=== PATIENT | female | born 1985 | race Caucasian/White ===

== ENCOUNTER 2018-03-29 14:55 | Emergency (ER) | payer BC ==
--- NOTE | 2018-03-29 15:58 | EDM.PDOC ---
ED HPI GENERAL MEDICAL PROBLEM - General Chief Complaint: Lower Extremity Injury/Pain Stated Complaint: LT LEG IS SWOLLEN Time Seen by Provider: 03/29/18 15:46 - History of Present Illness INITIAL COMMENTS - FREE TEXT/NARRATIVE: HISTORY AND PHYSICAL: History of present illness: The patient is a 32-year-old female was a history of varicose veins hypothyroidism depression and presents with complaints of pain to her left calf and her lateral leg that has been ongoing for the last 3 days. She denies any trauma to the area feels that the area is more swollen. There is no bony pain in the knee leg or ankle and has no neurosensory changes in the legs. She does not take oral control pills and has no risk factors for DVTs but is concerned about that. She says that when she points her toe she doesn't feel like she gets as much range of motion on the left she does on the right. She takes pain medications for chronic pain and as Motrin as needed and has been taking some Motrin. She has not noticed any color changes to the leg. Patient denies any chest pain shortness of breath abdominal pain or systemic complaints Review of systems: As per history of present illness and below otherwise all systems reviewed and negative. Past medical history: As per history of present illness and as reviewed below otherwise noncontributory. Surgical history: As per history of present illness and as reviewed below otherwise noncontributory. Social history: No reported history of drug or alcohol abuse. Family history: As per history of present illness and as reviewed below otherwise noncontributory. Physical exam: General: Well-developed well-nourished overweight female who is nontoxic and vital signs are reviewed by me HEENT: Atraumatic, normocephalic, negative for conjunctival pallor or scleral icterus, mucous membranes moist, throat clear, neck supple, nontender, trachea midline. Lungs: Clear to auscultation, breath sounds equal bilaterally, chest nontender. Heart: S1S2, regular rate and rhythm no overt murmurs Abdomen: Soft, nondistended, nontender. NABS Pelvis: Deferred Genitourinary: Deferred. Rectal: Deferred. Extremities: Atraumatic, range of motion of all extremities without defects deficits or bony deformities. The patient does have multiple palpable varicosities of her left lower extremity mostly on the lateral aspect of the thigh in the knee area and there is no redness or ecchymosis noted to the calf on the left. There is no gross pedal edema appreciated and all of the bones from the hip right knee tib-fib ankle and foot are all intact without deformities on the left. There is some tenderness at the lower aspect of the calf in the midline but there is no deep calf tenderness with palpation or popliteal fossa fullness or tenderness and no medial thigh tenderness. There is tenderness when I palpate the varicosities on the lateral aspect of her legs the patient can dorsi and plantar flex the feet that there is a slight decreased range of motion with plantar flexion on the left. Achilles tendon is intact to palpation and to range of motion Neurovascular unremarkable. Neuro: Awake, alert, oriented. Cranial nerves II through XII unremarkable. Cerebellum unremarkable. Motor and sensory unremarkable throughout. Exam nonfocal. Diagnostics: Venous Doppler left lower extremity Therapeutics: Impression: Left lower leg pain with history of varicosities Definitive disposition and diagnosis as appropriate pending reevaluation and review of above. lower back, Right Hip, Left Leg Pain Score (Numeric/FACES): 6 - Related Data Allergies Allergy/AdvReac Type Severity Reaction Status Date / Time morphine Allergy Hives Verified 03/29/18 15:12 bermuda grass Allergy Shortness Uncoded 03/29/18 15:12 of Breath pollen Allergy Shortness Uncoded 03/29/18 15:12 of Breath Home Meds: Home Meds ALPRAZolam [Alprazolam] 1 tab PO QID PRN 03/29/18 [History] DULoxetine [Cymbalta] 60 mg PO DAILY 03/29/18 [History] Levothyroxine [Synthroid] 50 mcg PO DAILY 03/29/18 [History] oxyCODONE HCl/Acetaminophen [Percocet 10-325 mg Tablet] 1 tab PO QID PRN [History] Past Medical History Cardiovascular History: Reports: None Gastrointestinal History: Reports: None Genitourinary History: Reports: 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: Musculoskeletal History: Reports: Back Pain, Chronic Neurological History: Reports: Migraines Endocrine/Metabolic History: Reports: Hypothyroidism Oncologic (Cancer) History: Reports: None Dermatologic History: Reports: Other (See Below) Other Dermatologic History: just completed antibiotic for cellulitis to facial piercing - Infectious Disease History Infectious Disease History: Reports: Chicken Pox - Past Surgical History Head Surgeries/Procedures: Reports: None HEENT Surgical History: Reports: Myringotomy w Tube(s) Cardiovascular Surgical History: Reports: None Respiratory Surgical History: Reports: None GI Surgical History: Reports: None Female Surgical History: Reports: Section, Tubal Ligation Neurological Surgical History: Reports: Other (See Below) Other Neurological Surgeries/Procedures: L5S1 surgery Musculoskeletal Surgical History: Reports: Arthroscopic Knee, Other (See Below) Social & Family History - Family History Family Medical History: Noncontributory - Tobacco Use Smoking Status *Q: Current Every Day Smoker Years of Tobacco use: 20 Packs/Tins Daily: 0.5 - Caffeine Use Caffeine Use: Reports: Coffee - Recreational Drug Use Recreational Drug Use: No Review of Systems - Review of Systems Review Of Systems: ROS reveals no pertinent complaints other than HPI. ED EXAM, GENERAL - Physical Exam Exam: See Below (See dictation) Course - Vital Signs Last Recorded V/S: Last Vital Signs Temp 36.8 C 03/29/18 15:09 Pulse 87 03/29/18 15:09 Resp 18 03/29/18 15:09 BP 137/89 03/29/18 15:09 Pulse Ox 96 03/29/18 15:09 Departure - Departure Time of Disposition: 16:30 Disposition: Home, Self-Care 01 Condition: Good Clinical Impression: Leg pain, left - Discharge Information Referrals: PCP,None [Primary Care Provider] - Forms: ED Department Discharge Additional Instructions: The following information is given to patients seen in the emergency department who are being discharged to home. This information is to outline your options for follow-up care. We provide all patients seen in our emergency department with a follow-up referral. The need for follow-up, as well as the timing and circumstances, are variable depending upon the specifics of your emergency department visit. If you don't have a primary care physician on staff, we will provide you with a referral. We always advise you to contact your personal physician following an emergency department visit to inform them of the circumstance of the visit and for follow-up with them and/or the need for any referrals to a consulting specialist. The emergency department will also refer you to a specialist when appropriate. This referral assures that you have the opportunity for followup care with a specialist. All of these measure are taken in an effort to provide you with optimal care, which includes your followup. Under all circumstances we always encourage you to contact your private physician who remains a resource for coordinating your care. When calling for followup care, please make the office aware that this follow-up is from your recent emergency room visit. If for any reason you are refused follow-up, please contact the [facility] emergency department at and ask to speak to the emergency department charge nurse. [facility] Primary care- Internal Medicine and Family [address] [address] [address]vate your legs and place ice to areas for symptomatic care and add an anti- inflammatory such as Aleve or Motrin for pain. Call and follow-up with your provider in the clinic or one of our clinic providers in the next few days for reevaluation and return to ER as needed and as discussed
--- NOTE | 2018-03-29 16:27 | US ---
ULTRASOUND EXAMINATION OF the left lower extremity WITH DOPPLER HISTORY: Pain FINDINGS: Examination of the left leg was performed from the groin to the calf region. All visualized segments including common femoral, proximal greater saphenous, superficial femoral, popliteal and calf veins appear patent with good compressibility and augmentation. There is no evidence of deep vein thrombos is. IMPRESSION: No evidence of a DVT.
[2018-03-29 16:52] VITALS: BP 132/79
== END 2018-03-29 16:48 | disposition home or self-care (01) ==
LOC: MW.ED 14:55
DX: M79.662 Pain in left lower leg (principal); E03.9 Hypothyroidism, unspecified; F17.210 Nicotine dependence, cigarettes, uncomplicated; Z88.5 Allergy status to narcotic agent; Z91.048 Other nonmedicinal substance allergy status; Z79.899 Other long term (current) drug therapy
CPT/HCPCS: 93971-26-LT; 93971-LT; 99283; 99283-25

== ENCOUNTER 2019-05-27 20:14 | Emergency (ER) | payer BC ==
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
[2019-05-27] MEDS ORDERED: Albuterol 0.083% 2.5 MG/3 ML Neb Soln NEB ONE (20:29)
[2019-05-27] MEDS ORDERED: Albuterol/Ipratropium 3.0-0.5 MG/3 ML Neb Soln ONE (20:31)
[2019-05-27] MEDS ORDERED: Albuterol/Ipratropium 3.0-0.5 MG/3 ML Neb Soln NEB ONE (20:33)
[2019-05-27 21:21] LABS: CHLORIDE,CL 107 mmol/L (98-107); SODIUM,NA 142 mmol/L (136-145)
--- NOTE | 2019-05-27 22:02 | CR ---
INDICATION: Chest pain. TECHNIQUE: Single portable AP view. COMPARISON: None. FINDINGS: Heart mediastinum and pulmonary vessels are within normal limits. Lungs are clear on this single view. No evidence of pneumothorax. No acute osseous abnormalities identified. IMPRESSION: Negative single-view chest. Dictated by Len Llamas MD @ May 27 2019 9:58PM Signed by Dr. Len Llamas @ May 27 2019 9:59PM
[2019-05-27 22:26] VITALS: BP 118/84
== END 2019-05-27 22:41 | disposition home or self-care (01) ==
LOC: MW.ED 20:14
DX: J40 Bronchitis, not specified as acute or chronic (principal); F41.9 Anxiety disorder, unspecified; F32.9 Major depressive disorder, single episode, unspecified; Z88.5 Allergy status to narcotic agent; Z91.09 Other allergy status, other than to drugs and biological substances; Z79.899 Other long term (current) drug therapy
CPT/HCPCS: 36415; 71045; 71045-26; 80053; 85025; 87804; 99285-25; J7620-GY

== ENCOUNTER 2019-10-15 19:20 | Emergency (ER) | payer BC ==
--- NOTE | 2019-10-15 20:21 | CR ---
INDICATION: Shortness of breath TECHNIQUE: Chest radiograph 1 view COMPARISON: 05/27/19 FINDINGS: Severe degradation of image quality noted due to body habit Mediastinum: The mediastinum is normal in appearance. The heart silhouette is normal in size and morphology. Lung: Both lungs are unremarkable in appearance. No sign of pleural effusion seen. No pneumothorax is identified. Bone and Soft tissue: Unremarkable for age. IMPRESSION: 1. No acute cardiopulmonary disease is seen. Dictated by: Carmine Huntley MD @ 10/15/2019 20:20:52 (Electronically Signed)
--- NOTE | 2019-10-15 20:33 | EDM.PDOC ---
ED HPI GENERAL MEDICAL PROBLEM - General Chief Complaint: General Stated Complaint: KIDNEY PAIN Time Seen by Provider: 10/15/19 19:44 Source of Information: Reports: Patient History Limitations: Reports: No Limitations - History of Present Illness INITIAL COMMENTS - FREE TEXT/NARRATIVE: HISTORY AND PHYSICAL: History of present illness: Patient is a 33-year-old female who presents to the ED today with concern of left-sided flank pain that has been ongoing for the past 3 months. Patient states she was seen in the clinic and did have a recent abdominal pelvic CT scan which she states she was told was normal. Patient states that she is concerned because she started having swelling of her lower extremities as well as episodes of shortness of breath over the past week along the left flank pain. She states she is concerned she could have some kidney dysfunction. Patient denies any change in her left-sided flank pain over the past couple months or since her abdominal pelvic CT scan performed recently. Patient states she's been taking Azo [id number] with some relief of her symptoms. Patient denies any health history or any other symptoms or concerns. Patient denies fever, chills, chest pain, shortness of breath, or cough. Denies headache, neck stiff ness, change in vision, syncope, or near syncope. Denies nausea, vomiting, diarrhea, constipation, or dysuria. Has not noted any blood in urine or stool. Patient has been eating and drinking appropriately. Review of systems: As per history of present illness and below otherwise all systems reviewed and negative. Past medical history: As per history of present illness and as reviewed below otherwise noncontributory. Surgical history: As per history of present illness and as reviewed below otherwise noncontributory. Social history: See social history for further information Family history: As per history of present illness and as reviewed below otherwise noncontributory. Physical exam: General: Patient is alert, oriented, and in no acute distress. Patient sitting comfortably on exam table. HEENT: Atraumatic, normocephalic, pupils equal and reactive bilaterally, negative for conjunctival pallor or scleral icterus, mucous membranes moist, TMs normal bilaterally, throat clear, neck supple, nontender, trachea midline. No drooling or trismus noted. No meningeal signs. No hot potato voice noted. Lungs: Clear to auscultation, breath sounds equal bilaterally, chest nontender. Heart: S1S2, regular rate and rhythm without overt murmur Abdomen: Soft, nondistended, nontender. Negative for masses or hepatosplenomegaly. Negative for costovertebral tenderness. Pelvis: Stable nontender. Genitourinary: Deferred. Rectal: Deferred. Skin: Intact, warm, dry. No lesions or rashes noted. Extremities: Atraumatic, negative for cords or calf pain. Neurovascular unremarkable. Neuro: Awake, alert, oriented. Cranial nerves II through XII unremarkable. Cerebellum unremarkable. Motor and sensory unremarkable throughout. Exam nonfocal. Notes: Discussed the importance for follow-up with primary care provider. Voices understanding and is agreeable to plan of care. Denies any further questions or concerns at this time. Diagnostics: CBC, CMP, UA, urine hCG, urine culture, EKG, chest x-ray, lipase, BNP (see patients abd/pelvic CT scan on 10/06/2019) Therapeutics: None Prescription: Bactrim DS Impression: Urinary tract infection Plan: 1. Take medication as prescribed. You can alternate ibuprofen and Tylenol as directed for pain and discomfort. 2. Follow-up with a primary care provider as discussed. Return to the ED as needed and as discussed. Definitive disposition and diagnosis as appropriate pending reevaluation and review of above. Left Flank Pain Score (Numeric/FACES): 7 - Related Data Allergies Allergy/AdvReac Type Severity Reaction Status Date / Time morphine Allergy Hives Verified 10/15/19 19:36 bermuda grass Allergy Shortness Uncoded 10/15/19 19:36 of Breath dust mites Allergy Other Uncoded 10/15/19 19:36 pollen Allergy Shortness Uncoded 10/15/19 19:36 of Breath Home Meds: Home Meds Levothyroxine [Synthroid] 50 mcg PO DAILY 03/29/18 [History] oxyCODONE HCl/Acetaminophen [Percocet 10-325 mg Tablet] 0.5 tab PO QID PRN 03/29 [History] Escitalopram [Lexapro] 10 mg PO DAILY 11/02/18 [History] Ondansetron [Zofran] 8 mg PO ASDIRECTED PRN 11/02/18 [History] Levothyroxine [Synthroid] 50 mcg PO ACBREAKFAST 05/27/19 [History] Pantoprazole Sodium [Protonix] 20 mg PO DAILY 05/27/19 [History] Pregabalin [Lyrica] 1 tab ASDIRECTED 05/27/19 [History] Glucosamine Sulfate 2KCl [Glucosamine] 1,000 mg PO 10/15/19 [History] Past Medical History HEENT History: Reports: Other (See Below) Other HEENT History: wears glasses Cardiovascular History: Reports: None Respiratory History: Reports: None Gastrointestinal History: Reports: None Genitourinary History: Reports: None 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: Musculoskeletal History: Reports: Back Pain, Chronic Neurological History: Reports: Migraines Psychiatric History: Reports: Anxiety, Depression, PTSD Endocrine/Metabolic History: Reports: Hypothyroidism Hematologic History: Reports: None Immunologic History: Reports: None Oncologic (Cancer) History: Reports: None Dermatologic History: Reports: Other (See Below) Other Dermatologic History: just completed antibiotic for cellulitis to facial piercing - Infectious Disease History Infectious Disease History: Reports: Chicken Pox - Past Surgical History Head Surgeries/Procedures: Reports: None HEENT Surgical History: Reports: Myringotomy w Tube(s), Oral Surgery Neurological Surgical History: Reports: Other (See Below) Social & Family History - Family History Family Medical History: Noncontributory - Tobacco Use Smoking Status *Q: Current Every Day Smoker Years of Tobacco use: 20 Packs/Tins Daily: 1 - Caffeine Use Caffeine Use: Reports: Coffee - Recreational Drug Use Recreational Drug Use: No ED ROS GENERAL - Review of Systems Review Of Systems: Comprehensive ROS is negative, except as noted in HPI. ED EXAM, GENERAL - Physical Exam Exam: See Below (see dictation) Course - Vital Signs Last Recorded V/S: Last Vital Signs Temp 97.2 F 10/15/19 19:39 Pulse 96 10/15/19 19:39 Resp 16 10/15/19 19:39 BP 143/78 H 10/15/19 19:39 Pulse Ox 100 10/15/19 19:39 - Orders/Labs/Meds Orders: Active Orders 24 hr Category Date Time Status EKG Documentation Completion [RC] STAT Care 10/15/19 19:51 Active CULTURE URINE [RM] Stat Lab 10/15/19 19:50 Received Labs: Laboratory Tests 10/15/19 10/15/19 10/15/19 Range/Units 19:50 19:50 20:18 WBC 11.03 H (4.0-11.0) K/uL RBC 4.97 (4.30-5.90) M/uL Hgb 12.5 (12.0-16.0) g/dL Hct 39.3 (36.0-46.0) % MCV 79.1 L (80.0-98.0) fL MCH 25.2 L (27.0-32.0) pg MCHC 31.8 (31.0-37.0) g/dL RDW Std Deviation 51.2 (28.0-62.0) fl RDW Coeff of Connie 18 H (11.0-15.0) % Plt Count 273 (150-400) K/uL MPV 10.30 (7.40-12.00) fL Neut % (Auto) 59.3 (48.0-80.0) % Lymph % (Auto) 29.6 (16.0-40.0) % [place] % (Auto) 6.8 (0.0-15.0) % Eos % (Auto) 3.8 (0.0-7.0) % Baso % (Auto) 0.5 (0.0-1.5) % Neut # (Auto) 6.5 H (1.4-5.7) K/uL Lymph # (Auto) 3.3 H (0.6-2.4) K/uL [place] # (Auto) 0.8 (0.0-0.8) K/uL Eos # (Auto) 0.4 (0.0-0.7) K/uL Baso # (Auto) 0.1 (0.0-0.1) K/uL Nucleated RBC % 0.0 /100WBC Nucleated RBCs # 0 K/uL Sodium (136-145) mmol/L Potassium (3.5-5.1) mmol/L Chloride (98-107) mmol/L Carbon Dioxide (21.0-32.0) mmol/L BUN (7.0-18.0) mg/dL Creatinine (0.6-1.0) mg/dL Est Cr Clr Drug Dosing mL/min Estimated GFR (MDRD) ml/min Glucose (74-106) mg/dL Calcium (8.5-10.1) mg/dL Total Bilirubin (0.2-1.0) mg/dL AST (15-37) IU/L ALT (14-63) IU/L Alkaline Phosphatase (46-116) U/L Troponin I (0.000-0.056) ng/mL B-Natriuretic Peptide (<100) PG/ML Total Protein (6.4-8.2) g/dL Albumin (3.4-5.0) g/dL Globulin (2.6-4.0) g/dL Albumin/Globulin Ratio (0.9-1.6) Lipase (73-393) U/L Urine Color ORANGE Urine Appearance CLEAR Urine pH 5.0 (5.0-8.0) Ur Specific [place] 1.025 (1.001-1.035) Urine Protein 100 H (NEGATIVE) mg/dL Urine Glucose (UA) 100 H (NEGATIVE) mg/dL Urine Ketones TRACE H (NEGATIVE) mg/dL Urine Occult Blood NEGATIVE (NEGATIVE) Urine Nitrite POSITIVE H (NEGATIVE) Urine Bilirubin NEGATIVE (NEGATIVE) Urine Urobilinogen >=8.0 H (<2.0) EU/dL Ur Leukocyte Esterase TRACE H (NEGATIVE) Urine RBC 0-1 (0-2/HPF) Urine WBC 0-1 (0-5/HPF) Ur Epithelial Cells OCCASIONAL (NONE-FEW) Urine Bacteria RARE (NEGATIVE) Urinalysis Comment Urine HCG, Qual NEGATIVE (NEGATIVE) 10/15/19 10/15/19 Range/Units 20:18 20:18 WBC (4.0-11.0) K/uL RBC (4.30-5.90) M/uL Hgb (12.0-16.0) g/dL Hct (36.0-46.0) % MCV (80.0-98.0) fL MCH (27.0-32.0) pg MCHC (31.0-37.0) g/dL RDW Std Deviation (28.0-62.0) fl RDW Coeff of Connie (11.0-15.0) % Plt Count (150-400) K/uL MPV (7.40-12.00) fL Neut % (Auto) (48.0-80.0) % Lymph % (Auto) (16.0-40.0) % [place] % (Auto) (0.0-15.0) % Eos % (Auto) (0.0-7.0) % Baso % (Auto) (0.0-1.5) % Neut # (Auto) (1.4-5.7) K/uL Lymph # (Auto) (0.6-2.4) K/uL [place] # (Auto) (0.0-0.8) K/uL Eos # (Auto) (0.0-0.7) K/uL Baso # (Auto) (0.0-0.1) K/uL Nucleated RBC % /100WBC Nucleated RBCs # K/uL Sodium 144 (136-145) mmol/L Potassium 4.4 (3.5-5.1) mmol/L Chloride 107 (98-107) mmol/L Carbon Dioxide 29.6 (21.0-32.0) mmol/L BUN 14 (7.0-18.0) mg/dL Creatinine 0.9 (0.6-1.0) mg/dL Est Cr Clr Drug Dosing 81.67 mL/min Estimated GFR (MDRD) > 60.0 ml/min Glucose 79 (74-106) mg/dL Calcium 8.3 L (8.5-10.1) mg/dL Total Bilirubin 0.2 (0.2-1.0) mg/dL AST 16 (15-37) IU/L ALT 30 (14-63) IU/L Alkaline Phosphatase 74 (46-116) U/L Troponin I < 0.050 (0.000-0.056) ng/mL B-Natriuretic Peptide 12 (<100) PG/ML Total Protein 7.2 (6.4-8.2) g/dL Albumin 3.4 (3.4-5.0) g/dL Globulin 3.8 (2.6-4.0) g/dL Albumin/Globulin Ratio 0.9 (0.9-1.6) Lipase 121 (73-393) U/L Urine Color Urine Appearance Urine pH (5.0-8.0) Ur Specific [place] (1.001-1.035) Urine Protein (NEGATIVE) mg/dL Urine Glucose (UA) (NEGATIVE) mg/dL Urine Ketones (NEGATIVE) mg/dL Urine Occult Blood (NEGATIVE) Urine Nitrite (NEGATIVE) Urine Bilirubin (NEGATIVE) Urine Urobilinogen (<2.0) EU/dL Ur Leukocyte Esterase (NEGATIVE) Urine RBC (0-2/HPF) Urine WBC (0-5/HPF) Ur Epithelial Cells (NONE-FEW) Urine Bacteria (NEGATIVE) Urinalysis Comment Urine HCG, Qual (NEGATIVE) Departure - Departure Time of Disposition: 21:04 Disposition: Home, Self-Care 01 Clinical Impression: Urinary tract infection Qualifiers: Urinary tract infection type: acute cystitis Hematuria presence: without hematuria Qualified Code(s): N30.00 - Acute cystitis without hematuria - Discharge Information Referrals: PCP,Unknown [Primary Care Provider] - Forms: ED Department Discharge Additional Instructions: The following information is given to patients seen in the emergency department who are being discharged to home. This information is to outline your options for follow-up care. We provide all patients seen in our emergency department with a follow-up referral. The need for follow-up, as well as the timing and circumstances, are variable depending upon the specifics of your emergency department visit. If you don't have a primary care physician on staff, we will provide you with a referral. We always advise you to contact your personal physician following an emergency department visit to inform them of the circumstance of the visit and for follow-up with them and/or the need for any referrals to a consulting specialist. The emergency department will also refer you to a specialist when appropriate. This referral assures that you have the opportunity for follow-up care with a specialist. All of these measure are taken in an effort to provide you with optimal care, which includes your follow-up. Under all circumstances we always encourage you to contact your private physician who remains a resource for coordinating your care. When calling for follow-up care, please make the office aware that this follow-up is from your recent emergency room visit. If for any reason you are refused follow-up, please contact the [facility] Emergency Department at and asked to speak to the emergency department charge nurse. [facility] [address] [place] [id number] [id number] 1. Take medication as prescribed. You can alternate ibuprofen and Tylenol as directed for pain and discomfort. 2. Follow-up with a primary care provider as discussed. Return to the ED as needed and as discussed. Sepsis Event Note - Evaluation Sepsis Screening Result: No Definite Risk - Focused Exam Vital Signs: Vital Signs Temp Pulse Resp BP Pulse Ox 10/15/19 19:39 97.2 F 96 16 143/78 H 100 Date Exam was Performed: 10/15/19 Time Exam was Performed: 21:03 - My Orders Last 24 Hours: My Active Orders 10/15/19 19:50 CULTURE URINE [RM] Stat 10/15/19 19:51 EKG Documentation Completion [RC] STAT - Assessment/Plan Last 24 Hours: My Active Orders 10/15/19 19:50 CULTURE URINE [RM] Stat 10/15/19 19:51 EKG Documentation Completion [RC] STAT
[2019-10-15 20:55] LABS: BLOOD UREA NITROGEN,BUN 14 mg/dL (7.0-18.0); CARBON DIOXIDE,CO2 29.6 mmol/L (21.0-32.0); CHLORIDE,CL 107 mmol/L (98-107); GLUCOSE RANDOM 79 mg/dL (74-106); LIPASE 121 U/L (73-393); POTASSIUM,K 4.4 mmol/L (3.5-5.1); SODIUM,NA 144 mmol/L (136-145)
[2019-10-15 21:19] VITALS: BP 121/77; PULSE 76
== END 2019-10-15 21:19 | disposition home or self-care (01) ==
LOC: MW.ED 19:20
DX: N30.00 Acute cystitis without hematuria (principal); F32.9 Major depressive disorder, single episode, unspecified; F41.9 Anxiety disorder, unspecified; E03.9 Hypothyroidism, unspecified; F17.210 Nicotine dependence, cigarettes, uncomplicated; Z88.5 Allergy status to narcotic agent; Z91.048 Other nonmedicinal substance allergy status; Z79.899 Other long term (current) drug therapy
CPT/HCPCS: 36415; 71045; 71045-26; 80053; 81001; 81025; 83690; 83880; 84484; 85025; 87086; 93005; 99284-25

== ENCOUNTER 2019-11-17 09:00 | Day surgery (SDC) | payer BC ==
[~2019-11-17 09:00] MED LIST: Lactated Ringers 1,000 ML IV SCH
[2019-11-17] MEDS ORDERED: Lidocaine 2% 5 ML SDV ONE (09:35)
[2019-11-17] MEDS ORDERED: Propofol 200 MG/20 ML SDV ONE ×2 (09:35→10:07)
--- NOTE | 2019-11-17 09:39 | PCM.PREANE ---
Preanesthetic Assessment - Anesthesia/Transfusion/Family Hx Anesthesia History: Prior Anesthesia Reaction (slow to wake up) Other Type of Anesthesia Reaction Comment: spent night post hysterectomy in ICU because of apnea Family History of Anesthesia Reaction: No Transfusion History: No Prior Transfusion(s) Intubation History: Unknown (pt denies ever being told she was a difficult airway) - Review of Systems General: No Symptoms Pulmonary: No Symptoms Cardiovascular: No Symptoms Gastrointestinal: Hematochezia, Other (severe acid reflux and feels like throat closes) Neurological: No Symptoms Other: Reports: None - Physical Assessment Height: 5 ft 6 in Weight: 156.489 kg ASA Class: 3 Mental Status: Alert & Oriented x3 Airway Class: Mallampati = 2 Dentition: Reports: Normal Dentition, Bridge (single flipper upper front) Thyro-Mental Finger Breadths: 3 Mouth Opening Finger Breadths: 2 (small mouth) ROM/Head Extension: Full Lungs: Clear to Auscultation, Normal Respiratory Effort Cardiovascular: Regular Rate, Regular Rhythm - Allergies Allergies/Adverse Reactions: Allergies Allergy/AdvReac Type Severity Reaction Status Date / Time morphine Allergy Hives Verified 11/13/19 13:04 bermuda grass Allergy Shortness Uncoded 11/13/19 13:04 of Breath dust mites Allergy Other Uncoded 11/13/19 13:04 pollen Allergy Shortness Uncoded 11/13/19 13:04 of Breath - Blood Blood Available: No - Anesthesia Plan Pre-Op Medication Ordered: None - Acknowledgements Anesthesia Type Planned: MAC Pt an Appropriate Candidate for the Planned Anesthesia: Yes Alternatives and Risks of Anesthesia Discussed w Pt/Guardian: Yes Pt/Guardian Understands and Agrees with Anesthesia Plan: Yes PreAnesthesia Questionnaire HEENT History: Reports: Other (See Below) Other HEENT History: wears glasses Cardiovascular History: Reports: None Respiratory History: Reports: Asthma Other Respiratory History: has an Albuterol inhaler- rarely uses it Gastrointestinal History: Reports: Chronic Diarrhea, GERD, Other (See Below) Other Gastrointestinal History: current rectal bleeding Genitourinary History: Reports: None 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: Musculoskeletal History: Reports: Arthritis, Back Pain, Chronic, Fracture, Neck Pain, Chronic, Other (See Below) (myogascial pain, neuropathic pain) Other Musculoskeletal History: frequent dislocation of both knees, hx of fx toes Neurological History: Reports: Migraines, Seizure, Other (See Below) Other Neuro History: daily [place] seizures- "zones out", very sensitive to light, hx of motion sickness and claustrophobia Psychiatric History: Reports: Anxiety, Depression, PTSD Endocrine/Metabolic History: Reports: Hypothyroidism, Obesity/BMI 30+ (BMI 55.7 , morbid obeisty), Other (See Below) Other Endocrine/Metabolic History: has a [place] adenoma Hematologic History: Reports: None Immunologic History: Reports: None Oncologic (Cancer) History: Reports: None Dermatologic History: Reports: Other (See Below) Other Dermatologic History: just completed antibiotic for cellulitis to facial piercing - Infectious Disease History Infectious Disease History: Reports: Chicken Pox - Past Surgical History Head Surgeries/Procedures: Reports: None HEENT Surgical History: Reports: Myringotomy w Tube(s) Female Surgical History: Reports: Section, Hysterectomy, Tubal Ligation Neurological Surgical History: Reports: Lumbar Spine Musculoskeletal Surgical History: Reports: Arthroscopic Knee - SUBSTANCE USE Smoking Status *Q: Current Every Day Smoker Tobacco Use Within Last Twelve Months: Cigarettes Recreational Drug Use History: No - HOME MEDS Home Medications: Home Meds oxyCODONE HCl/Acetaminophen [Percocet 10-325 mg Tablet] 1 tab PO TID 03/29/18 [ History] Glucosamine Sulfate 2KCl [Glucosamine] 1,000 mg PO DAILY 10/15/19 [History] Cholecalciferol (Vitamin D3) [Vitamin D3] 1 cap PO DAILY 11/13/19 [History] Citalopram Hydrobromide [Celexa] 40 mg PO DAILY 11/13/19 [History] Fluticasone Propionate [Flonase Allergy Relief] 1 spray NASBOTH DAILY PRN [History] Levothyroxine Sodium 88 mcg PO QAM 11/13/19 [History] Mirtazapine 15 mg PO BEDTIME 11/13/19 [History] Ondansetron [Zofran] 8 mg PO DAILY PRN 11/13/19 [History] Pantoprazole Sodium 40 mg PO DAILY 11/13/19 [History] Prazosin [Minpress] 1 mg PO BEDTIME 11/13/19 [History] Pregabalin 75 mg PO BID 11/13/19 [History] oxyCODONE HCl/Acetaminophen [Endocet 10-325 mg Tablet] 1 tab PO TID 11/13/19 [ History] - CURRENT (IN HOUSE) MEDS Current Meds: Current Medications Lactated Ringer's (Ringers, Lactated) 1,000 mls @ 125 mls/hr IV ASDIRECTED FRANNIE
[2019-11-17] MEDS ORDERED: fentaNYL 100 MCG/2 ML SDV ONE (10:00)
--- NOTE | 2019-11-17 10:41 | PCM.OPNOTE ---
- General Post-Op/Procedure Note Date of Surgery/Procedure: 11/17/19 Operative Procedure(s): egd w bx. colonoscopy Findings: see [id number] Pre Op Diagnosis: dysphagia and abd pain Post-Op Diagnosis: Same Anesthesia Technique: Moderate Sedation Primary Surgeon: Garcia Mantilla Pathology: egd bx Complications: None Condition: Good
[2019-11-17 10:59] VITALS: BP 132/87; PULSE 68
--- NOTE | 2019-11-17 11:28 | PCM.POSTAN ---
POST ANESTHESIA ASSESSMENT - MENTAL STATUS Mental Status: Alert, Oriented - VITAL SIGNS Vital Signs: Last Vital Signs Temp 36.5 C 11/17/19 10:45 Pulse 68 11/17/19 10:45 Resp 15 11/17/19 10:45 BP 132/87 11/17/19 10:45 Pulse Ox 96 11/17/19 10:45 - RESPIRATORY Respiratory Status: Respiratory Rate WNL, Airway Patent, O2 Saturation Stable - CARDIOVASCULAR CV Status: Pulse Rate WNL, Blood Pressure Stable - GASTROINTESTINAL GI Status: No Symptoms - PAIN Pain Score: 0 - POST OP HYDRATION Hydration Status: Adequate & Stable - OBSERVATIONS Free Text/Narrative:: No anesthesia problems
--- NOTE | 2019-11-17 11:30 | PCM48HPAN ---
Post Anesthesia Note - EVALUATION WITHIN 48HRS OF ANESTHETIC Vital Signs in Normal Range: Yes Patient Participated in Evaluation: Yes Respiratory Function Stable: Yes Airway Patent: Yes Cardiovascular Function Stable: Yes Hydration Status Stable: Yes Pain Control Satisfactory: Yes Nausea and Vomiting Control Satisfactory: Yes Mental Status Recovered: Yes Vital Signs: Last Vital Signs Temp 36.5 C 11/17/19 10:45 Pulse 68 11/17/19 10:45 Resp 15 11/17/19 10:45 BP 132/87 11/17/19 10:45 Pulse Ox 96 11/17/19 10:45 - COMMENTS/OBSERVATIONS Free Text/Narrative:: No anesthesia problems
--- NOTE | 2019-11-17 12:30 | OR ---
SURGEON: Garcia Mantilla MD DATE OF PROCEDURE: 11/17/2019 PREOPERATIVE DIAGNOSES: Dysphagia and abdominal pain. POSTOPERATIVE DIAGNOSES: Esophagogastroduodenoscopy is hiatal hernia and gastroesophageal reflux disease. Colonoscopy diagnosis is hemorrhoid. PROCEDURES PERFORMED: Esophagogastroduodenoscopy with biopsy and colonoscopy. DESCRIPTION OF PROCEDURE: EGD: The patient was taken to the endoscopy room, and with the TEASEL GIG OPERATOR, Diprivan was administered. A well-lubricated EGD scope was gently inserted through the oropharynx, down the esophagus, passing through the gastroesophageal junction, into the stomach. The mucosa was examined upon the passage. Any etiology will be noted. Once in the stomach, we continued to advance to the distal antrum, passed through the pylorus into the second portion of the duodenum. Again, the mucosa was examined for any abnormality and etiology. The scope was then retrieved back to the stomach and then retroflexed to look at the fundus of the stomach. If a biopsy was indicated, we will biopsy the antrum, body, and gastroesophageal junction. The air will be sucked out while the scope is retrieved to reduce the patient's discomfort. The patient tolerated the procedure well. There were no intraoperative complications. Dr. Mantilla was present through the whole procedure. Prior to surgery, a time-out had been called, the patient identified, procedure identified and antibiotic administered. The patient was taken to the endoscopy room. A time out was called, patient identified, and procedure identified. Diprivan was then administrated. Patient went from awake to sleep, hearing doctor talking or door closing is normal. Perineum inspection and digital examination were then performed. A well- lubricated colonoscope was gently inserted through the rectum, advanced past the rectosigmoid junction, the descending colon, splenic flexure, transverse colon, hepatic flexure, ascending colon, arrived to the cecum. Cecum was identified as dictated in the finding. Then the scope was carefully withdrawn while attention was paid to the mucosal surface for any abnormality. Air will be sucked out during the scope withdrawal. At the rectum, retroflexed to examine any rectal diseases, fistula or hemorrhoids. Patient tolerated procedure well. There were no intraoperative complications, and Dr. Mantilla was present throughout the whole procedure. FINDINGS: EGD findings: 1. The patient is easily sedated with TEASEL GIG OPERATOR and Diprivan, the patient is soundly snoring. 2. Oropharynx and proximal esophagus are free of disease, stricture, or inflammation. Distal esophagus at distance of 35 shows a flame-like salmon- colored change, suggests moderate GERD and concern for Martins's too. There are several skip lesions. Stomach rugae are normal in appearance. Antrum is mildly inflamed. Duodenum is grossly normal. Retroflexed look at the fundus of stomach, the patient has a small hiatal hernia. Biopsy done at antrum and body and GE junction at 35 and sucked out the gas while scope pulling out. During the whole study, there is no blood, fluid, or bile observed. Colonoscopy findings: 1. The patient is easily sedated with TEASEL GIG OPERATOR and Diprivan, the patient is soundly snoring. 2. Bowel prep is marginally acceptable to unacceptable. Large amount of semi- formed liquid stool, opaque, and compromised the study. Although we can reach cecum, but the study is very very compromised. Colon is rather redundant and cecum is indicated by ileocecal fold, one-to-one indentation, and appendiceal orifice. ScopeGuide is pointing south. Light emittance is not observed. Mucosa examined upon scope pulling out. The patient has a large amount of semi-formed stool coating the mucosa requiring almost constant irrigation, but still, I mean after I irrigated, the stool covered the mucosa right away, so the study is quite compromised. From this study, there is no diverticulosis, polyp, mass, growth, inflammation, stricture, ulceration, AV malformation, none of those. The patient has mild internal hemorrhoids, mild external hemorrhoids. The patient would benefit from repeat colonoscopy in 18 months because of the marginally acceptable bowel prep and probably the patient will need to repeat the EGD at that time too because of skip lesion, concern for Martins esophagitis. We will also put the patient on PPI, omeprazole 20 mg p.o. daily for 6 months with one refill. HALLIE / TR /[id number]
== END 2019-11-17 11:15 | disposition home or self-care (01) ==
LOC: MW.SDS 09:00
PROVIDERS: ATTEND Surgery
DX: K44.9 Diaphragmatic hernia without obstruction or gangrene (principal); K21.0 Gastro-esophageal reflux disease with esophagitis; K29.50 Unspecified chronic gastritis without bleeding; K64.8 Other hemorrhoids; K64.4 Residual hemorrhoidal skin tags; F41.9 Anxiety disorder, unspecified; F32.1 Major depressive disorder, single episode, moderate; G43.109 Migraine with aura, not intractable, without status migrainosus; M47.818 Spondylosis without myelopathy or radiculopathy, sacral and sacrococcygeal region; M47.22 Other spondylosis with radiculopathy, cervical region; E03.8 Other specified hypothyroidism; J45.909 Unspecified asthma, uncomplicated; E66.01 Morbid (severe) obesity due to excess calories; Z68.43 Body mass index [BMI] 50.0-59.9, adult; Z87.891 Personal history of nicotine dependence; Z88.5 Allergy status to narcotic agent; Z91.09 Other allergy status, other than to drugs and biological substances; Z79.899 Other long term (current) drug therapy
CPT/HCPCS: 43239; 45378; J2001; J2704; J3010; J7120

== ENCOUNTER 2020-11-15 17:12 | Emergency (ER) | payer BC ==
--- NOTE | 2020-11-15 17:25 | EDM.PDOC ---
ED HPI GENERAL MEDICAL PROBLEM - General Chief Complaint: Respiratory Problem Stated Complaint: UNCONTROLLABLE ASTHMA Time Seen by Provider: 11/15/20 17:15 Source of Information: Reports: Patient History Limitations: Reports: No Limitations - History of Present Illness INITIAL COMMENTS - FREE TEXT/NARRATIVE: HISTORY AND PHYSICAL: History of present illness: Patient is a 35-year-old female who presents to the emergency room with complaints of right posterior chest wall pain when she coughs and has shortness of breath x 4-5 days. Patient does have a history of asthma and states typically she does not have to use her albuterol inhaler but has been having to use this over the past several days more frequently. Patient denies any fever, chills, headache, change in vision, syncope or near syncope. Denies any chest pain or hemoptysis. Denies any abdominal pain, nausea, vomiting, diarrhea, constipation or dysuria. Has not noted any blood in urine or stool. She has had a hysterectomy, no concern for . Patient has been eating and drinking appropriately. Review of systems: As per history of present illness and below otherwise all systems reviewed and negative. Past medical history: As per history of present illness and as reviewed below otherwise noncontributory. Surgical history: As per history of present illness and as reviewed below otherwise non contributory. Social history: See social history for further information Family history: As per history of present illness and as reviewed below otherwise noncontributory. Physical exam: General: Well developed and well nourished 35-year-old female. Alert and orientated x 3. Nontoxic in appearance and in no acute distress. Vital signs are stable and have been reviewed by me. Nursing notes were reviewed. HEENT: Atraumatic, normocephalic, pupils equal and reactive bilaterally, negative for conjunctival pallor or scleral icterus, mucous membranes moist, TMs normal bilaterally, throat clear, neck supple, nontender, trachea midline. No drooling or trismus noted. No meningeal signs. No hot potato voice noted. Lungs: Clear to auscultation with fine expiratory wheezing to bases bilaterally. No rales, or rhonchi. Dry nonproductive cough noted. Chest nontender. Normal work of breathing, no accessory muscles used. Heart: S1S2, regular rate and rhythm without overt murmur, gallops, or rubs. No JVD. No peripheral edema Abdomen: Soft, nondistended, nontender. Normoactive bowel sounds. Negative for masses or costovertebral tenderness. Pelvis: Stable nontender. Genitourinary/Rectal: Deferred. Skin: Intact, warm, dry. No lesions or rashes noted. Hematologic: No petechiae or purpra. Mucosa appropriate color and normal nail bed color and refill. Extremities: Atraumatic, moves all extremities per self without difficulty or deficits, negative for cords or calf pain. Neurovascular unremarkable. Neuro: Awake, alert, oriented. Cranial nerves II through XII unremarkable. Cerebellum unremarkable. Motor and sensory unremarkable throughout. Exam nonfocal. Psychiatric: Mood and affect are appropriate. Normal thought process. Answering questions appropriately. Notes: *This patient was seen and evaluated during the 2019 SARS-CoV-2 novel coronavirus pandemic period. Community viral transmission is ongoing at time of this encounter and the emergency department is operating under pandemic response procedures. Patient states that the right lower posterior lung base is where it hurts when she is coughing. When she is coughing frequently she becomes short of breath. When at rest she does not have any shortness of breath, chest pain or back pain. She has no urinary symptoms although I will get a UA and chest x-ray and swab her for COVID. Patient is negative for COVID-19 and influenza. Her chest x-ray shows acute findings. Due to her history of asthma and length of symptoms I will treat her with a Z-Isael. I have talked with the patient about today's findings, in addition to providing specific details for plan of care. Reassessment at the time of disposition demonstrates that the patient is in no acute distress. The patient is stable for discharge, counseling was provided and we discussed in great detail signs and symptoms that would prompt them to return to the Emergency Department. Medication, follow up and supportive care measures were reviewed and discussed. Voices understanding and is agreeable to plan of care. Denies any further questions or concerns at this time. Diagnostics: Influenza/COVID, CXR, UA Therapeutics: Duo Neb Prescription: Z-Isael, prednisone, DuoNeb [facility] prescription for nebulizer machine Impression: Asthma exacerbation Bronchitis Plan: 1. Your negative for COVID-19 and influenza. Your chest x-ray shows no evidence of and acute pneumonia. I am going to treat you with azithromycin for an atypical pneumonia due to your history of asthma and frequent coughing. 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 2. You can alternate Tylenol and ibuprofen as needed for pain and fever management. 3. We encourage you to follow up with your primary care provider and/or recommended specialist in the next few days for re-evaluation and further care/management. 4. If your symptoms should worsen, new symptoms develop or any of the signs and symptoms we discussed should arise please return to the emergency room or call 911 (if needed). Definitive disposition and diagnosis as appropriate pending reevaluation and rev iew of above. rib Pain Score (Numeric/FACES): 7 - Related Data Allergies Allergy/AdvReac Type Severity Reaction Status Date / Time morphine Allergy Hives Verified 11/15/20 17:26 bermuda grass Allergy Shortness Uncoded 11/15/20 17:26 of Breath dust mites Allergy Other Uncoded 11/15/20 17:26 pollen Allergy Shortness Uncoded 11/15/20 17:26 of Breath Home Meds: Home Meds oxyCODONE HCl/Acetaminophen [Percocet 10-325 mg Tablet] 1 tab PO TID 03/29/18 [History] Glucosamine Sulfate Dipot Chlr [Glucosamine] 1,000 mg PO DAILY 10/15/19 [History] Cholecalciferol (Vitamin D3) [Vitamin D3] 1 cap PO DAILY 11/13/19 [History] Citalopram Hydrobromide [Celexa] 40 mg PO DAILY 11/13/19 [History] Fluticasone Propionate [Flonase Allergy Relief] 1 spray NASBOTH DAILY PRN 11/13/19 [History] Levothyroxine Sodium 88 mcg PO QAM 11/13/19 [History] Mirtazapine 15 mg PO BEDTIME 11/13/19 [History] Ondansetron [Zofran] 8 mg PO DAILY PRN 11/13/19 [History] Pantoprazole Sodium 40 mg PO DAILY 11/13/19 [History] Prazosin [Minpress] 1 mg PO BEDTIME 11/13/19 [History] Pregabalin 75 mg PO BID 11/13/19 [History] oxyCODONE HCl/Acetaminophen [Endocet 10-325 mg Tablet] 1 tab PO TID 11/13/19 [History] Albuterol/Ipratropium [DuoNeb 3.0-0.5 MG/3 ML] 1 ampule INH Q4HR PRN #1 box 11/15/20 [Rx] Azithromycin [Zithromax] 1 dose PO DAILY 5 Days #6 tab 11/15/20 [Rx] predniSONE [Prednisone] 40 mg PO DAILY 4 Days #8 tablet 11/15/20 [Rx] Past Medical History HEENT History: Reports: Other (See Below) Other HEENT History: wears glasses Cardiovascular History: Reports: None Respiratory History: Reports: Asthma Other Respiratory History: has an Albuterol inhaler- rarely uses it Gastrointestinal History: Reports: Chronic Diarrhea, GERD, Other (See Below) Other Gastrointestinal History: current rectal bleeding Genitourinary History: Reports: None 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: Musculoskeletal History: Reports: Arthritis, Back Pain, Chronic, Fracture, Neck Pain, Chronic, Other (See Below) Other Musculoskeletal History: frequent dislocation of both knees, hx of fx toes Neurological History: Reports: Migraines, Seizure, Other (See Below) Other Neuro History: daily [place] seizures- "zones out", very sensitive to light, hx of motion sickness and claustrophobia Psychiatric History: Reports: Anxiety, Depression, PTSD Endocrine/Metabolic History: Reports: Hypothyroidism, Obesity/BMI 30+, Other (See Below) Other Endocrine/Metabolic History: has a [place] adenoma Hematologic History: Reports: None Immunologic History: Reports: None Oncologic (Cancer) History: Reports: None Dermatologic History: Reports: Other (See Below) Other Dermatologic History: just completed antibiotic for cellulitis to facial piercing - Infectious Disease History Infectious Disease History: Reports: Chicken Pox - Past Surgical History Head Surgeries/Procedures: Reports: None HEENT Surgical History: Reports: Myringotomy w Tube(s) Cardiovascular Surgical History: Reports: None Respiratory Surgical History: Reports: None GI Surgical History: Reports: None Female Surgical History: Reports: Section, Hysterectomy, Tubal Ligation Neurological Surgical History: Reports: Lumbar Spine Other Neurological Surgeries/Procedures: L5S1 surgery Musculoskeletal Surgical History: Reports: Arthroscopic Knee Other Musculoskeletal Surgeries/Procedures:: right knee Social & Family History - Family History Family Medical History: No Pertinent Family History - Caffeine Use Caffeine Use: Reports: Coffee ED ROS GENERAL - Review of Systems Review Of Systems: Comprehensive ROS is negative, except as noted in HPI. ED EXAM, GENERAL - Physical Exam Exam: See Below (See dictation) Course - Vital Signs Last Recorded V/S: Last Vital Signs Temp 96.6 F L 11/15/20 17:23 Pulse 86 11/15/20 19:00 Resp 17 11/15/20 19:00 BP 138/79 11/15/20 19:00 Pulse Ox 98 11/15/20 19:00 - Orders/Labs/Meds Labs: Laboratory Tests 11/15/20 11/15/20 Range/Units 17:35 19:00 Urine Color YELLOW Urine Appearance CLEAR Urine pH 6.0 (5.0-8.0) Ur Specific [place] >= 1.030 (1.001-1.035) Urine Protein NEGATIVE (NEGATIVE) mg/dL Urine Glucose (UA) NEGATIVE (NEGATIVE) mg/dL Urine Ketones NEGATIVE (NEGATIVE) mg/dL Urine Occult Blood NEGATIVE (NEGATIVE) Urine Nitrite NEGATIVE (NEGATIVE) Urine Bilirubin SMALL H (NEGATIVE) Urine Ictotest NEGATIVE Urine Urobilinogen 0.2 (<2.0) EU/dL Ur Leukocyte Esterase NEGATIVE (NEGATIVE) Influenza Type A RNA NEGATIVE (NEGATIVE) Influenza Type B RNA NEGATIVE (NEGATIVE) SARS-CoV-2 RNA (ADONAY) NEGATIVE (NEGATIVE) Meds: Medications Discontinued Medications Generic Name Dose Route Start Last Admin Trade Name Freq PRN Reason Stop Dose Admin Albuterol/Ipratropium 3 ml 11/15/20 18:28 11/15/20 18:37 Duoneb 3.0-0.5 Mg/3 Ml NEB 11/15/20 18:29 3 ml ONETIME ONE Administration Departure - Departure Time of Disposition: 18:53 Disposition: Home, Self-Care 01 Clinical Impression: Bronchitis Exacerbation of asthma Qualifiers: Asthma severity: mild Asthma persistence: persistent Qualified Code(s): J45.31 - Mild persistent asthma with (acute) exacerbation - Discharge Information Prescriptions: Albuterol/Ipratropium [DuoNeb 3.0-0.5 MG/3 ML] 1 ampule INH Q4HR PRN #1 box PRN Reason: Dyspnea predniSONE [Prednisone] 40 mg PO DAILY 4 Days #8 tablet Azithromycin [Zithromax] 1 dose PO DAILY 5 Days #6 tab Instructions: Asthma Attack Prevention, Adult Referrals: PCP,Not In Area [Primary Care Provider] - Forms: ED Department Discharge Additional Instructions: The following information is given to patients seen in the emergency department who are being discharged to home. This information is to outline your options for follow-up care. We provide all patients seen in our emergency department with a follow-up referral. The need for follow-up, as well as the timing and circumstances, are variable depending upon the specifics of your emergency department visit. If you don't have a primary care physician on staff, we will provide you with a referral. We always advise you to contact your personal physician following an emergency department visit to inform them of the circumstance of the visit and for follow-up with them and/or the need for any referrals to a consulting specialist. The emergency department will also refer you to a specialist when appropriate. This referral assures that you have the opportunity for follow-up care with a specialist. All of these measure are taken in an effort to provide you with optimal care, which includes your follow-up. Under all circumstances we always encourage you to contact your private physician who remains a resource for coordinating your care. When calling for follow-up care, please make the office aware that this follow-up is from your recent emergency room visit. If for any reason you are refused follow-up, please contact the [facility] Department at and asked to speak to the emergency department charge nurse. [facility] [address] [place], [place] [id number] [place] [address] Thank you for choosing the [facility] emergency department in [place] for your medical needs today. It was a pleasure caring for you. Today you were seen in the emergency department for cough and shortness of breath. 1. Your negative for COVID-19 and influenza. Your chest x-ray shows no evidence of and acute pneumonia. I am going to treat you with azithromycin for an atypical pneumonia due to your history of asthma and frequent coughing. 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 2. You can alternate Tylenol and ibuprofen as needed for pain and fever management. 3. We encourage you to follow up with your primary care provider and/or recommended specialist in the next few days for re-evaluation and further care/management. 4. If your symptoms should worsen, new symptoms develop or any of the signs and symptoms we discussed should arise please return to the emergency room or call 911 (if needed). Sepsis Event Note (ED) - Focused Exam Vital Signs: Vital Signs Temp Pulse Resp BP Pulse Ox 11/15/20 19:00 86 17 138/79 98 11/15/20 17:23 96.6 F L 83 16 148/90 H 100
[2020-11-15 18:22] LABS: CORONAVIRUS COVID-19 NAA NEGATIVE (NEGATIVE); INFLUENZA A NAA NEGATIVE (NEGATIVE); INFLUENZA B NAA NEGATIVE (NEGATIVE)
[2020-11-15] MEDS ORDERED: Albuterol/Ipratropium 3.0-0.5 MG/3 ML Neb Soln NEB ONE (18:28)
--- NOTE | 2020-11-15 18:54 | CR ---
Indication: Chest pain, shortness of breath Technique: Chest 1 view Comparison: October 15, 2019 Findings/Impression: Cardiovascular and mediastinum: Heart size and vasculature are normal in caliber and appearance. Mediastinum is within normal limits. Lungs and pleural space: Lungs are clear. No sign of infiltrate or mass. No sign of pleural effusion. No pneumothorax. Bones and soft tissues: No significant findings. Dictated by Elva Hairston MD @ Nov 15 2020 6:52PM Signed by Dr. Elva Hairston @ Nov 15 2020 6:53PM
[2020-11-15 19:51] VITALS: BP 138/79; PULSE 86
== END 2020-11-15 19:12 | disposition home or self-care (01) ==
LOC: MW.ED 17:12
DX: J45.31 Mild persistent asthma with (acute) exacerbation (principal); Z20.822 Contact with and (suspected) exposure to COVID-19; K21.9 Gastro-esophageal reflux disease without esophagitis; E66.9 Obesity, unspecified; E03.9 Hypothyroidism, unspecified; Z68.42 Body mass index [BMI] 45.0-49.9, adult; Z88.5 Allergy status to narcotic agent; Z88.8 Allergy status to other drugs, medicaments and biological substances; Z79.899 Other long term (current) drug therapy
CPT/HCPCS: 0240U; 71045; 81003; 94640; 99285; 99282; J7620-GY

== ENCOUNTER 2024-11-04 22:00 | Emergency (ER) | payer OTHER ==
[2024-11-04] MEDS ORDERED: Sodium Chloride 0.9% 10 ML Syringe FLUSH PRN (22:34)
[2024-11-04 22:59] LABS: BASOPHILS ABSOLUTE AUTO 0.03 K/uL (0.00-0.20); BASOPHILS PERCENT AUTO 0.3 % (0.0-1.0); EOSINOPHILS ABSOLUTE AUTO 0.16 K/uL (0.00-0.45); EOSINOPHILS PERCENT AUTO 1.6 % (0.0-6.0); HEMATOCRIT 42.6 % (37.0-47.0); HEMOGLOBIN 14.7 g/dL (12.0-16.0); IMMATURE GRAN ABSOLUTE AUTO 0.02 K/uL (0.00-0.05); IMMATURE GRAN PERCENT AUTO 0.2 % (0.0-0.4); LYMPHOCYTES ABSOLUTE AUTO 2.95 K/uL (1.00-4.80); LYMPHOCYTES PERCENT AUTO 29.9 % (24.0-44.0); MEAN CORPUSCULAR HEMOGLOBIN 30.8 pg (28.0-32.0); MEAN CORPUSCULAR HGB CONC 34.5 g/dL (32.0-36.0); MEAN CORPUSCULAR VOLUME 89.3 fL (83.0-99.0); MEAN PLATELET VOLUME 10.2 fL (9.4-12.3); MONOCYTES ABSOLUTE AUTO 0.49 K/uL (0.00-0.80); NEUTROPHILS ABSOLUTE AUTO 6.23 K/uL (1.80-7.70); PLATELET COUNT,PLT 255 K/uL (150-400); RED BLOOD CELL COUNT 4.77 M/uL (4.10-5.30); WHITE BLOOD CELL COUNT,WBC 9.88 K/uL (3.9-11.3)
[2024-11-04 23:10] LABS: INR 0.94 (0.86-1.11)
[2024-11-04 23:27] LABS: ALANINE AMINOTRANSFERASE,ALT 21 IU/L (14-63); ALBUMIN 3.7 g/dL (3.4-5.0); ALKALINE PHOSPHATASE 62 U/L (46-116); ASPARTATE AMNIOTRANSFERASE,AST 16 IU/L (15-37); BILIRUBIN TOTAL 0.3 mg/dL (0.2-1.0); BLOOD UREA NITROGEN,BUN 8 mg/dL (7.0-18.0); CALCIUM 9.1 mg/dL (8.5-10.1); CARBON DIOXIDE,CO2 30.6 mmol/L (21.0-32.0); CHLORIDE,CL 105 mmol/L (98-107); EST CRCL DRUG DOSING (CG) 69.31 mL/min; ESTIMATED GFR 73 mL/min (>60); GLUCOSE RANDOM 77 mg/dL (74-106); LIPASE 54 U/L (16-77); POTASSIUM,K 3.4 mmol/L (3.5-5.1); PRO B-TYPE NATRIUR PEPT,BNPPRO 87 pg/mL (0-125); PROTEIN TOTAL,TP 7.4 g/dL (6.4-8.2); SODIUM,NA 141 mmol/L (136-145)
[2024-11-04 23:30] LABS: BILIRUBIN,URINE NEGATIVE (NEGATIVE); COLOR,URINE YELLOW; GLUCOSE,URINE NEGATIVE (NEGATIVE); KETONES,URINE NEGATIVE (NEGATIVE); LEUKOCYTE ESTERASE,URINE NEGATIVE (NEGATIVE); NITRITE,URINE NEGATIVE (NEGATIVE); OCCULT BLOOD,URINE NEGATIVE (NEGATIVE); PROTEIN,URINE NEGATIVE (NEGATIVE); UROBILINOGEN,URINE 0.2 EU/dL (<2.0)
[2024-11-04 23:34] LABS: APPEARANCE,URINE HAZY
[2024-11-04 23:42] LABS: AMPHETAMINES SCREEN, URINE PRESUMPTIVE POSITIVE (CUTOFF=500); BARBITURATE SCREEN,URINE NEGATIVE (CUTOFF=200); BENZODIAZEPINES SCREEN,URINE NEGATIVE (CUTOFF=150); BUPRENORPHINE SCREEN,URINE NEGATIVE (CUTOFF=10); METHADONE SCREEN, URINE NEGATIVE (CUTOFF=200); METHAMPHETAMINES SCREEN, URINE NEGATIVE (CUTOFF=500); OXYCODONE SCREEN,URINE NEGATIVE (CUT0FF=100); PCP SCREEN,URINE NEGATIVE (CUTOFF=25); THC SCREEN,URINE 20 NG/ML PRESUMPTIVE POSITIVE (CUTOFF=50)
[2024-11-04] MEDS: Dexamethasone 4 MG/ML SDV IVPUSH ONE (23:44)
[2024-11-04] MEDS: Sodium Chloride 0.9% 1,000 ML IV ONE (23:44)
[2024-11-04 23:51] VITALS: BP 129/97; PULSE 69
== END 2024-11-05 00:46 | disposition home or self-care (01) ==
LOC: MW.ED 22:00
DX: K59.09 Other constipation (principal); J02.9 Acute pharyngitis, unspecified; R06.02 Shortness of breath; R30.0 Dysuria; F15.90 Other stimulant use, unspecified, uncomplicated; F12.90 Cannabis use, unspecified, uncomplicated; J45.909 Unspecified asthma, uncomplicated; E03.9 Hypothyroidism, unspecified; E66.9 Obesity, unspecified; Z79.899 Other long term (current) drug therapy; Z90.710 Acquired absence of both cervix and uterus; Z88.5 Allergy status to narcotic agent; Z91.048 Other nonmedicinal substance allergy status; Z68.41 Body mass index [BMI] 40.0-44.9, adult
CPT/HCPCS: 36415; 71045; 80053; 80305; 81003; 83605; 83690; 83735; 83880; 84484; 85025; 85610; 87428; 96361; 96374; 99285; J1100; J7030

== ENCOUNTER 2025-02-11 23:58 | Emergency (ER) | payer OTHER ==
[2025-02-12 00:06] VITALS: BP 148/97; PULSE 83
[2025-02-12] MEDS: Pantoprazole 80 MG in Sodium Chloride 0.9% 10 ML IVPUSH ONE (00:10)
[2025-02-12] MEDS ORDERED: droPERidol 2.5 MG/ML SDV IVPUSH PRN (00:12)
[2025-02-12 00:13] LABS: BASOPHILS ABSOLUTE AUTO 0.06 K/uL (0.00-0.20); BASOPHILS PERCENT AUTO 0.6 % (0.0-1.0); EOSINOPHILS ABSOLUTE AUTO 0.46 K/uL (0.00-0.45); EOSINOPHILS PERCENT AUTO 4.4 % (0.0-6.0); HEMATOCRIT 42.1 % (37.0-47.0); HEMOGLOBIN 14.4 g/dL (12.0-16.0); IMMATURE GRAN ABSOLUTE AUTO 0.02 K/uL (0.00-0.05); IMMATURE GRAN PERCENT AUTO 0.2 % (0.0-0.4); LYMPHOCYTES PERCENT AUTO 35.4 % (24.0-44.0); MEAN CORPUSCULAR HEMOGLOBIN 31.4 pg (28.0-32.0); MEAN CORPUSCULAR HGB CONC 34.2 g/dL (32.0-36.0); MEAN CORPUSCULAR VOLUME 91.7 fL (83.0-99.0); MEAN PLATELET VOLUME 10.1 fL (9.4-12.3); MONOCYTES ABSOLUTE AUTO 0.59 K/uL (0.00-0.80); MONOCYTES PERCENT AUTO 5.6 % (0.0-8.0); NEUTROPHILS ABSOLUTE AUTO 5.62 K/uL (1.80-7.70); NEUTROPHILS PERCENT AUTO 53.8 % (41.0-71.0); PLATELET COUNT,PLT 261 K/uL (150-400); RED BLOOD CELL COUNT 4.59 M/uL (4.10-5.30); WHITE BLOOD CELL COUNT,WBC 10.45 K/uL (3.9-11.3)
[2025-02-12 00:26] LABS: INR 0.94 (0.86-1.11)
[2025-02-12 00:40] LABS: A/G RATIO 1.2 (0.9-1.6); ALBUMIN 3.7 g/dL (3.4-5.0); BILIRUBIN TOTAL 0.4 mg/dL (0.2-1.0); CALCIUM 8.5 mg/dL (8.5-10.1); CARBON DIOXIDE,CO2 29.1 mmol/L (21.0-32.0); CREATININE 0.9 mg/dL (0.6-1.0); EST CRCL DRUG DOSING (CG) 77.01 mL/min; PROTEIN TOTAL,TP 6.9 g/dL (6.4-8.2)
[2025-02-12] MEDS: Ondansetron 4 MG/2 ML SDV IVPUSH ONE (00:40)
[2025-02-12] MEDS: Alum Hydrox/Mag Hydrox/Simeth 15 ML, Metoclopramide 5 MG, Lidocaine 2% 5 ML PO ONE (00:40)
[2025-02-12] MEDS: Iopamidol 755 MG/ML 500 ML Multipack Bottle IVPUSH ONE (00:54)
== END 2025-02-12 01:47 | disposition home or self-care (01) ==
LOC: MW.ED 23:58
DX: K92.2 Gastrointestinal hemorrhage, unspecified (principal); K21.9 Gastro-esophageal reflux disease without esophagitis; R19.5 Other fecal abnormalities; Z88.5 Allergy status to narcotic agent; Z91.018 Allergy to other foods; Z88.8 Allergy status to other drugs, medicaments and biological substances; Z91.048 Other nonmedicinal substance allergy status; Z79.899 Other long term (current) drug therapy; Z90.710 Acquired absence of both cervix and uterus
CPT/HCPCS: 36415; 74177; 80053; 83605; 83690; 85025; 85610; 96374; 96375; 99284; A9270; J2405; J2470; Q9967; 99283